=== PATIENT | female | born 1990 | race Two or more races ===

== ENCOUNTER 2017-09-26 21:34 | Emergency (ER) | payer MEDICAID ==
[~2017-09-26] VITALS: Ht 157.5 cm; Wt 133.8 kg
[2017-09-26 22:54] VITALS: BP 142/98
[2017-09-26] MEDS ORDERED: LISI-167 PO (22:59)
[2017-09-26 23:14] LABS: BASOPHILS # (AUTO) 0.12 x10^3/uL (0-0.1); BASOPHILS % (AUTO) 1 % (0-1); EOSINOPHILS # (AUTO) 0.08 x10^3/uL (0-0.4); EOSINOPHILS % (AUTO) 1 % (1-7); LYMPHOCYTES # (AUTO) 3.08 x10^3/uL (1-3.4); LYMPHOCYTES % (AUTO) 28 % (22-44); MD NO; MEAN CORPUSCULAR HEMOGLOBIN 28.4 pg (27.0-34.8); MEAN CORPUSCULAR HGB CONC 33.7 g/dL (32.4-35.8); MEAN CORPUSCULAR VOLUME 84.2 fL (80-100); MEAN PLATELET VOLUME 8.1 fL (7.4-10.4); MONOCYTES # (AUTO) 0.74 x10^3/uL (0.2-0.8); MONOCYTES % (AUTO) 7 % (2-9); NEUTROPHILS # (AUTO) 6.96 x10^3/uL (1.8-6.8); NEUTROPHILS % (AUTO) 64 % (42-75); PLATELET COUNT 376 x10^3/uL (130-400); RED BLOOD COUNT 5.24 x10^6/uL (3.82-5.3); RED CELL DISTRIBUTION WIDTH 13.9 % (9.6-15.2)
[2017-09-26 23:26] LABS: CULTURE INDICATED? YES; MICROSCOPIC INDICATED
[2017-09-26 23:27] LABS: ALBUMIN 3.6 g/dL (3.4-5.0); ANION GAP 7 mmol/L (5-15); CALCIUM 8.7 mg/dL (8.5-10.1); CHLORIDE 109 mmol/L (98-107); CREATININE 0.79 mg/dL (0.55-1.02)
== END 2017-09-27 01:08 | disposition home or self-care (01) ==
LOC: ED 23:59
DX: R10.2 Pelvic and perineal pain (principal); I10 Essential (primary) hypertension; Z98.51 Tubal ligation status
CPT/HCPCS: 36415; 76830; 80048; 81001; 82040; 84702; 85025; 87086; 99285

== ENCOUNTER 2019-10-28 17:56 | Emergency (ER) | payer MEDICAID ==
[~2019-10-28] VITALS: Ht 154.9 cm; Wt 88.2 kg
[~2019-10-28 17:56] MED LIST: LISI-167 PO
[2019-10-28 18:02] VITALS: BP 139/99
--- NOTE | 2019-10-28 20:17 | NUR ---
PT NORMALLY WEARS GLASSES BUT DID NOT HAVE THEM WITH HER TONIGHT.
[2019-10-28] MEDS ORDERED: DIPHENHYDRAMINE 25 MG CAPSULE ONE (20:53)
[2019-10-28] MEDS ORDERED: DIPHENHYDRAMINE 25 MG CAPSULE PO ONE (21:00)
== END 2019-10-28 20:58 | disposition home or self-care (01) ==
LOC: ED 20:21
DX: H10.33 Unspecified acute conjunctivitis, bilateral (principal)
CPT/HCPCS: 99283; Q0163

== ENCOUNTER 2019-11-21 22:13 | Emergency (ER) | payer MEDICAID ==
[~2019-11-21] VITALS: Ht 154.9 cm; Wt 88.0 kg
--- NOTE | 2019-11-21 22:27 | NUR ---
C/O SORE THROAT, COUGH, AND EAR PAIN X3 WEEKS.
--- NOTE | 2019-11-21 22:44 | NUR ---
LAB AT BEDSIDE.
[2019-11-21 22:53] LABS: BASOPHILS # (AUTO) 0.02 x10^3/uL (0-0.1); BASOPHILS % (AUTO) 0 % (0-1); EOSINOPHILS # (AUTO) 0.05 x10^3/uL (0-0.4); EOSINOPHILS % (AUTO) 1 % (1-7); LYMPHOCYTES % (AUTO) 33 % (22-44); MD NO; MEAN CORPUSCULAR HEMOGLOBIN 30.8 pg (27.0-34.8); MEAN CORPUSCULAR HGB CONC 34.1 g/dL (32.4-35.8); MEAN CORPUSCULAR VOLUME 90.3 fL (80-100); MEAN PLATELET VOLUME 8.1 fL (7.4-10.4); MONOCYTES # (AUTO) 0.55 x10^3/uL (0.2-0.8); MONOCYTES % (AUTO) 7 % (2-9); NEUTROPHILS # (AUTO) 4.84 x10^3/uL (1.8-6.8); NEUTROPHILS % (AUTO) 59 % (42-75); PLATELET COUNT 298 x10^3/uL (130-400); RED BLOOD COUNT 5.08 x10^6/uL (3.82-5.3); RED CELL DISTRIBUTION WIDTH 13.2 % (9.6-15.2)
[2019-11-21 23:04] LABS: ANION GAP 5 mmol/L (5-15); CALCIUM 8.7 mg/dL (8.5-10.1); CHLORIDE 109 mmol/L (98-107); CREATININE 0.79 mg/dL (0.55-1.02)
[2019-11-21 23:26] VITALS: BP 145/97
== END 2019-11-21 23:32 | disposition home or self-care (01) ==
LOC: ED 23:07
DX: J02.8 Acute pharyngitis due to other specified organisms (principal); I10 Essential (primary) hypertension; H92.03 Otalgia, bilateral; R07.9 Chest pain, unspecified; F17.210 Nicotine dependence, cigarettes, uncomplicated
CPT/HCPCS: 36415; 71045; 80048; 82040; 85025; 87806; 99284; 99406; G0475

== ENCOUNTER 2020-01-04 07:29 | Emergency (ER) | payer MEDICAID ==
[~2020-01-04] VITALS: Ht 157.5 cm; Wt 87.3 kg
--- NOTE | 2020-01-04 07:48 | NUR ---
PT STATES SEEN AT [facility] ON 01/01, PLACED ON ANTIBIOTIC BUT CAN'T REMEMBER NAME. PT STATES URINARY FREQUENCY, PELVIC PAIN, AND RASH TO PERIAREA. PT ALSO STATES VB INTERMITTENT WITH CLOTS WHILE WIPING. PT STATES COUGH FOR COUPLE DAYS. CALL LIGHT WITHIN REACH. SMALL AMOUNT OF URINE COLLECTED/ORDERED/SENT.
[2020-01-04 08:20] LABS: MICROSCOPIC INDICATED
[2020-01-04] MEDS ORDERED: CEFTRIAXONE PMX 1GM/50ML 50 ML IV ONE (08:30)
[2020-01-04] MEDS ORDERED: SODIUM CHLORIDE FLUSH 10ML SYR IVF ONE (08:30)
[2020-01-04] MEDS ORDERED: SODIUM CHLORIDE 0.9% 1,000ML IVBOLUS ONE (08:30)
[2020-01-04 08:44] LABS: BASOPHILS # (AUTO) 0.04 x10^3/uL (0-0.1); BASOPHILS % (AUTO) 0 % (0-1); EOSINOPHILS # (AUTO) 0.07 x10^3/uL (0-0.4); EOSINOPHILS % (AUTO) 1 % (1-7); LYMPHOCYTES # (AUTO) 2.23 x10^3/uL (1-3.4); LYMPHOCYTES % (AUTO) 17 % (22-44); MD NO; MEAN CORPUSCULAR HEMOGLOBIN 30.7 pg (27.0-34.8); MEAN CORPUSCULAR HGB CONC 33.3 g/dL (32.4-35.8); MEAN CORPUSCULAR VOLUME 92.2 fL (80-100); MEAN PLATELET VOLUME 7.8 fL (7.4-10.4); MONOCYTES % (AUTO) 6 % (2-9); NEUTROPHILS # (AUTO) 9.75 x10^3/uL (1.8-6.8); NEUTROPHILS % (AUTO) 76 % (42-75); PLATELET COUNT 282 x10^3/uL (130-400); RED BLOOD COUNT 5.26 x10^6/uL (3.82-5.3); RED CELL DISTRIBUTION WIDTH 13.6 % (9.6-15.2)
[2020-01-04 08:52] LABS: ALANINE AMINOTRANSFERASE 30 U/L (12-78); ALBUMIN 3.6 g/dL (3.4-5.0); ANION GAP 3 mmol/L (5-15); CALCIUM 8.7 mg/dL (8.5-10.1); CHLORIDE 108 mmol/L (98-107); CREATININE 0.77 mg/dL (0.55-1.02)
[2020-01-04 08:54] LABS: ALKALINE PHOSPHATASE 68 U/L (45-117); BILIRUBIN,TOTAL 0.3 mg/dL (0.2-1.0); TOTAL PROTEIN 7.7 g/dL (6.4-8.2)
[2020-01-04] MEDS ORDERED: CEFTRIAXONE PMX 1GM/50ML 50 ML ONE (08:59)
--- NOTE | 2020-01-04 09:18 | NUR ---
TASK RN NOTE: PIV ESTABLISHED, NS AND ROCEPHIN INFUSING AT THIS TIME. PER JIGAR POSEY, NO BLOOD CX NEEDED PRIOR TO ROCEPHIN ADMIN. PT IS HYPERTENSIVE, 171/109, JIGAR BAUM INFORMED. PRIMARY RN INFORMED. PT ATTACHED TO BP AND SPO2 MONITORS. ULTRASOUND IN PROG AT BEDSIDE.
[2020-01-04 10:48] VITALS: BP 141/85
== END 2020-01-04 10:50 | disposition home or self-care (01) ==
LOC: ED 07:55
DX: N10 Acute pyelonephritis (principal); R10.9 Unspecified abdominal pain; R30.0 Dysuria; M54.9 Dorsalgia, unspecified; E66.9 Obesity, unspecified; I10 Essential (primary) hypertension; J45.909 Unspecified asthma, uncomplicated; Z90.710 Acquired absence of both cervix and uterus; Z68.35 Body mass index [BMI] 35.0-35.9, adult; Z98.51 Tubal ligation status; Z79.899 Other long term (current) drug therapy
CPT/HCPCS: 36415; 71045; 76770; 80053; 81001; 85025; 87077; 87086; 96365; 99285; J0696; J7030; 87186

== ENCOUNTER 2020-01-28 17:26 | Emergency (ER) | payer MEDICAID ==
[~2020-01-28] VITALS: Ht 154.9 cm; Wt 90.0 kg
--- NOTE | 2020-01-28 17:44 | NUR ---
TASK RN: PT AMBULATES FROM TRIAGE TO ROOM WITH STEADY GAIT.
[2020-01-28 18:02] LABS: MICROSCOPIC NOT IND
[2020-01-28 18:06] VITALS: BP 138/89
[2020-01-28 18:13] LABS: HCG UR SG 1.033 (1.003-1.030)
[2020-01-28 18:43] LABS: BASOPHILS # (AUTO) 0.04 x10^3/uL (0-0.1); BASOPHILS % (AUTO) 1 % (0-1); EOSINOPHILS % (AUTO) 1 % (1-7); LYMPHOCYTES # (AUTO) 2.69 x10^3/uL (1-3.4); LYMPHOCYTES % (AUTO) 30 % (22-44); MD NO; MEAN CORPUSCULAR HEMOGLOBIN 30.3 pg (27.0-34.8); MEAN CORPUSCULAR HGB CONC 32.8 g/dL (32.4-35.8); MEAN PLATELET VOLUME 8.6 fL (7.4-10.4); MONOCYTES # (AUTO) 0.91 x10^3/uL (0.2-0.8); MONOCYTES % (AUTO) 10 % (2-9); NEUTROPHILS # (AUTO) 5.21 x10^3/uL (1.8-6.8); NEUTROPHILS % (AUTO) 58 % (42-75); PLATELET COUNT 266 x10^3/uL (130-400); RED BLOOD COUNT 4.74 x10^6/uL (3.82-5.3); RED CELL DISTRIBUTION WIDTH 14.3 % (9.6-15.2)
[2020-01-28 18:48] LABS: ALBUMIN 3.4 g/dL (3.4-5.0); ANION GAP 9 mmol/L (5-15); CALCIUM 8.7 mg/dL (8.5-10.1); CHLORIDE 108 mmol/L (98-107)
[2020-01-28 18:52] LABS: ALANINE AMINOTRANSFERASE 47 U/L (12-78); ALKALINE PHOSPHATASE 77 U/L (45-117); BILIRUBIN,TOTAL 0.3 mg/dL (0.2-1.0); TOTAL PROTEIN 7.3 g/dL (6.4-8.2)
--- NOTE | 2020-01-28 18:53 | NUR ---
THIS RN AT BEDSIDE DURING PELVIC WITH . WET PREP COLLECTED AND TAKEN TO LAB. REPORT GIVEN TO TIFFANY LIU.
[2020-01-28 19:04] LABS: CLUE CELLS PRESENT (NONE SEEN); WET PREP WBCS FEW (FEW)
--- NOTE | 2020-01-28 19:29 | NUR ---
RN WENT INTO ROOM TO GIVE PATIENT DISCHARGE PAPERWORK, PATIENT WAS NOT IN ROOM OR BATHROOMS. RN WAITIED A WHILE TO SEE IF PATIENT WILL RETURN. RN WILL HOLD ONTO PAPERWORK IF PATIENT RETURNS
== END 2020-01-28 19:34 | disposition home or self-care (01) ==
LOC: ED 19:30
DX: R10.2 Pelvic and perineal pain (principal); N76.0 Acute vaginitis; R10.30 Lower abdominal pain, unspecified; J45.909 Unspecified asthma, uncomplicated; I10 Essential (primary) hypertension; F17.200 Nicotine dependence, unspecified, uncomplicated; Z90.710 Acquired absence of both cervix and uterus
CPT/HCPCS: 36415; 80053; 81003; 81025; 83690; 85025; 87210; 87491; 87591; 87808; 99284

== ENCOUNTER 2020-12-04 12:31 | Emergency (ER) | payer MEDICAID ==
[~2020-12-04] VITALS: Ht 154.9 cm; Wt 92.4 kg
[2020-12-04 12:40] VITALS: BP 139/71
--- NOTE | 2020-12-04 12:57 | NUR ---
PT BIB SELF. PER PT SHE HAS BEEN HAVING RIGHT SHOULDER SEVERE PAIN SINCE YESTERDAY. PT DENIED ANY INJURY TO SHOULDER. PT RESTING IN CHAIR WITH EYES CLOSED, GRADY AT THIS TIME, GUSTAVO.
[2020-12-04] MEDS ORDERED: DIAZEPAM 5 MG TABLET PO ONE (13:00)
[2020-12-04] MEDS ORDERED: KETOROLAC 30 MG/1 ML IM ONE (13:00)
[2020-12-04] MEDS ORDERED: KETOROLAC 30 MG/1 ML ONE (13:09)
== END 2020-12-04 15:01 | disposition home or self-care (01) ==
LOC: ED 14:55
DX: S16.1XXA Strain of muscle, fascia and tendon at neck level, initial encounter (principal); G24.3 Spasmodic torticollis; J45.909 Unspecified asthma, uncomplicated; X58.XXXA Exposure to other specified factors, initial encounter; Y93.89 Activity, other specified; Y92.009 Unspecified place in unspecified non-institutional (private) residence as the place of occurrence of the external cause; Y99.8 Other external cause status
CPT/HCPCS: 72050; 96372; 99283; J1885

== ENCOUNTER 2021-02-26 18:25 | Emergency (ER) | payer MEDICAID ==
[~2021-02-26] VITALS: Ht 154.9 cm; Wt 86.4 kg
[2021-02-26 18:37] VITALS: BP 149/115
--- NOTE | 2021-02-26 18:49 | NUR ---
see supervisor: Pt ambulatory to room from lobby at this time.
[2021-02-26] MEDS ORDERED: IBUPROFEN 800 MG TABLET ONE (18:59)
[2021-02-26] MEDS ORDERED: IBUPROFEN 800 MG TABLET PO ONE (19:30)
== END 2021-02-26 19:06 | disposition home or self-care (01) ==
LOC: ED 18:55
DX: H66.001 Acute suppurative otitis media without spontaneous rupture of ear drum, right ear (principal); B34.9 Viral infection, unspecified; I10 Essential (primary) hypertension; J45.909 Unspecified asthma, uncomplicated; R51.9 Headache, unspecified; F17.200 Nicotine dependence, unspecified, uncomplicated; Z90.710 Acquired absence of both cervix and uterus
CPT/HCPCS: 99282